=== PATIENT | female | born 1985 | race Caucasian/White ===

== ENCOUNTER 2022-10-01 01:38 | Emergency (ER) | payer OTHER ==
[~2022-10-01] VITALS: Ht 162.6 cm; Wt 50.8 kg
[2022-10-01] MEDS ORDERED: LINA145C PO (02:00)
[2022-10-01] MEDS ORDERED: OMEP40CA21 PO (02:00)
[2022-10-01] MEDS ORDERED: LEVO500T90 PO (02:00)
[2022-10-01] MEDS ORDERED: DICYCLOMINE HCL LIQ 10 MG/5 ML UDC PO ONE (02:15)
[2022-10-01] MEDS ORDERED: HYDROMORPHONE HCL 2 MG TABLET PO ONE (02:15)
[2022-10-01] MEDS ORDERED: HYDROMORPHONE HCL 2 MG TABLET ONE (02:16)
[2022-10-01] MEDS ORDERED: DICYCLOMINE HCL LIQ 10 MG/5 ML UDC ONE (02:16)
[2022-10-01] MEDS ORDERED: DICY20TA11 PO (02:22)
[2022-10-01 02:29] VITALS: BP 118/51; O2SAT 97
== END 2022-10-01 02:29 | disposition home or self-care (01) ==
LOC: ER 01:55
DX: K58.9 Irritable bowel syndrome, unspecified (principal); G89.29 Other chronic pain; R10.31 Right lower quadrant pain; Z79.2 Long term (current) use of antibiotics; Z79.899 Other long term (current) drug therapy
CPT/HCPCS: A4663